=== PATIENT | male | born 1955 | race American Indian/Alaskan Native ===

== ENCOUNTER 2016-09-20 11:44 | Emergency (ER) | payer OTHER ==
[2016-09-20 11:54] VITALS: BP 151/93
--- NOTE | 2016-09-20 11:55 | Emergency Department Report ---
Chief Complaint: Urogenital-Male Stated Complaint: FREQ. URINATION/BACK PAIN/FOREHEAD CYST/ Time Seen by Provider: 09/20/16 11:52 - HPI History of Present Illness: PT c/o frequent urination - ROS Review of Systems: + chronic back pain + forehead cyst - polydipsia - Exam Physical Exam: pt is alert and appropriate, ambulatory with walker MSE screening note: Focused history and physical exam performed. Due to findings the following was ordered: labs ED Disposition for MSE Condition: Stable
[2016-09-20 12:54] LABS: Basophils % (Auto) 0.5 % (0.0-1.8); Eosinophils % (Auto) 1.6 % (0.0-4.3); Hematocrit 39.9 % (35.5-45.6); Hemoglobin 13.6 gm/dl (11.8-15.2); Mean Corpuscular HGB Conc 34 % (32-34); Mean Corpuscular Hemoglobin 34 pg (28-32); Mean Corpuscular Volume 101 fl (84-94); Platelet Count 186 K/mm3 (140-440); Red Blood Count 3.95 M/mm3 (3.65-5.03); Red Cell Distribution Width 11.9 % (13.2-15.2); White Blood Count 5.1 K/mm3 (4.5-11.0)
[2016-09-20 13:02] LABS: Anion Gap 19 mmol/L; BUN/Creatinine Ratio 28.57; Blood Urea Nitrogen 20 mg/dL (9-20); Calcium 9.7 mg/dL (8.4-10.2); Carbon Dioxide 26 mmol/L (22-30); Chloride 98.6 mmol/L (98-107); Glucose 93 mg/dL (75-100); Sodium 140 mmol/L (137-145)
[2016-09-20 14:42] LABS: Bilirubin,Urine NEG (Negative); Blood,Urine SM (Negative); Ketones,Urine NEG (Negative); Leukocyte Esterase,Urine NEG (Negative); Mucus,Urine FEW /HPF; Nitrite,Urine NEG (Negative); Protein,Urine <15 mg/dL mg/dL (Negative)
--- NOTE | 2016-09-20 17:07 | Emergency Department Report ---
Entered by KRISTIN MCKEON, acting as scribe for MARIA DOLORES CARROLL PA. ED Back Pain/Injury HPI - General Chief Complaint: Urogenital-Male Stated Complaint: FREQ. URINATION/BACK PAIN/FOREHEAD CYST/ Time Seen by Provider: 09/20/16 11:52 Source: patient Limitations: No Limitations - History of Present Illness Initial Comments: 60 y/o male with a PMHx of HTN, CVA, ID, diabetes mellitus, and bipolar disorder presents to the ED c/o low back pain that began more than 1 month ago. Rates pain an 8/10, which he describes as aching in quality. Aggravated with standing, movement, and walking, and alleviated with immobilization. Denies fever, chills, abdominal pain, nausea, vomiting, dysuria, urgency, frequency, incontinence, bilateral leg pain/swelling, chest pain, and SOB. Denies taking any medication for pain. Patient states he is ambulatory with a walker. DAVIAN BEJARANO Complaint: back pain (low) Onset/Timin -: month(s) Similar Symptoms Previously: Yes Place: home Radiation: other (low back) Severity: severe Severity scale (0 -10): 8 Quality: aching Consistency: constant Improves With: immobilization, sitting upright Worsens With: movement, walking, other (standing) Context: unknown Associated Symptoms: denies other symptoms. denies: confusion, weakness, chest pain, numbness, difficulty walking, cough, difficulty urinating, diaphoresis, incontinence, fever/chills, constipation, headaches, abdominal pain, loss of appetite, malaise, nausea/vomiting, rash, seizure, shortness of breath, syncope - Related Data Home Medications Medication Instructions Recorded Confirmed Last Taken Aspirin [Aspirin BABY CHEW TAB] 81 mg PO QDAY 07/27/15 07/27/15 Unknown Lisinopril/Hydrochlorothiazide 1 tab PO QDAY 07/27/15 07/27/15 Unknown [Zestoretic 10-12.5 mg] OLANzapine [ZyPREXA] 2 tab PO DAILY 07/27/15 07/27/15 Unknown Previous Rx's Medication Instructions Recorded Last Taken Type Furosemide [Lasix] 20 mg PO QDAY #7 tablet 07/27/15 Unknown Rx Acetaminophen [Acetaminophen TAB] 650 mg PO DAILY PRN #30 tablet 09/20/16 Unknown Rx Cyclobenzaprine [Flexeril] 10 mg PO QHS PRN #10 tablet 09/20/16 Unknown Rx Allergies Allergy/AdvReac Type Severity Reaction Status Date / Time No Known Allergies Allergy Verified 07/27/15 22:00 ED Review of Systems Comment: All other systems reviewed and negative Constitutional: denies: chills, fever Eyes: denies: eye pain, eye discharge, vision change ENT: denies: ear pain, throat pain Respiratory: denies: cough, orthopnea, shortness of breath, SOB with exertion, SOB at rest, stridor, wheezing Cardiovascular: denies: chest pain, palpitations, dyspnea on exertion, orthopnea , edema, syncope, paroxysmal nocturnal dyspnea Endocrine: no symptoms reported Gastrointestinal: denies: abdominal pain, nausea, vomiting, diarrhea Musculoskeletal: back pain (low back). denies: joint swelling, arthralgia Skin: denies: rash, lesions Neurological: denies: headache, weakness, numbness, paresthesias Hematological/Lymphatic: denies: easy bleeding, easy bruising ED Past Medical Hx - Past Medical History Previous Medical History?: Yes Hx Hypertension: Yes Hx Heart Attack/AMI: Yes Hx Congestive Heart Failure: Yes Hx Diabetes: Yes Hx Psychiatric Treatment: (bipolar) Additional medical history: cardiao vascular dis - Surgical History Past Surgical History?: No - Family History Family history: no significant - Social History Smoking Status: Current Every Day Smoker Substance Use Type: None - Medications Home Medications: Home Medications Medication Instructions Recorded Confirmed Last Taken Type Aspirin [Aspirin BABY CHEW TAB] 81 mg PO QDAY 07/27/15 07/27/15 Unknown History Furosemide [Lasix] 20 mg PO QDAY #7 tablet 07/27/15 Unknown Rx Lisinopril/Hydrochlorothiazide 1 tab PO QDAY 07/27/15 07/27/15 Unknown History [Zestoretic 10-12.5 mg] OLANzapine [ZyPREXA] 2 tab PO DAILY 07/27/15 07/27/15 Unknown History Acetaminophen [Acetaminophen TAB] 650 mg PO DAILY PRN #30 tablet 09/20/16 Unknown Rx Cyclobenzaprine [Flexeril] 10 mg PO QHS PRN #10 tablet 09/20/16 Unknown Rx ED Physical Exam - General Limitations: No Limitations General appearance: alert, in no apparent distress - Head Head exam: Present: atraumatic, normocephalic - Eye Eye exam: Present: normal appearance, PERRL, EOMI Pupils: Present: normal accommodation - ENT ENT exam: Present: normal exam, mucous membranes moist, normal external ear exam - Neck Neck exam: Present: normal inspection, full ROM. Absent: tenderness, meningismus, lymphadenopathy, thyromegaly - Respiratory Respiratory exam: Present: normal lung sounds bilaterally. Absent: respiratory distress, wheezes, rales, rhonchi, stridor, chest wall tenderness, accessory muscle use, decreased breath sounds, prolonged expiratory - Cardiovascular Cardiovascular Exam: Present: regular rate, normal rhythm, normal heart sounds. Absent: systolic murmur, diastolic murmur, rubs, gallop - GI/Abdominal GI/Abdominal exam: Present: soft, normal bowel sounds. Absent: distended, tenderness, guarding, rebound, rigid - Extremities Exam Extremities exam: Present: normal inspection, full ROM, normal capillary refill. Absent: tenderness, pedal edema, joint swelling, calf tenderness - Back Exam Back exam: Present: normal inspection, full ROM. Absent: tenderness, CVA tenderness (R), CVA tenderness (L), muscle spasm, paraspinal tenderness, vertebral tenderness - Neurological Exam Neurological exam: Present: alert, oriented X3, normal gait (ambulatory with walker) - Psychiatric Psychiatric exam: Present: normal affect, normal mood - Skin Skin exam: Present: warm, dry, intact, other (3-4 mass present on right thoracic muscle). Absent: rash ED Course Vital Signs 09/20/16 11:50 Temperature 97.3 F L Pulse Rate 105 H Respiratory 16 Rate Blood Pressure 151/93 O2 Sat by Pulse 98 Oximetry ED Medical Decision Making - Lab Data Result diagrams: 09/20/16 12:30 09/20/16 12:30 - Medical Decision Making 60 [id number] presents with low back myalgia ED course: Patient received an UA. Urinalysis is negative. CBC, CMP within normal limits Scars findings with patient Vital signs stable patient is in no acute or respiratory distress. Discussed findings with patient about diagnoses. Discussed treatment in ED with patient Discussed with patient to follow up with PCP as referred, and to return to the ED if symptoms return or worsen. Patient states understanding and will follow instructions. Pt verbally states understanding and will comply to follow up. ED Disposition Clinical Impression: Lumbar radicular pain Disposition: DC-01 TO HOME OR SELFCARE Is pt being admited?: No Does the pt Need Aspirin: No Condition: Stable Instructions: Trigger Point Pain (ED), Musculoskeletal Pain (ED), Heat Pack Application (ED) Prescriptions: Cyclobenzaprine [Flexeril] 10 mg PO QHS PRN #10 tablet PRN Reason: Muscle Spasm Acetaminophen [Acetaminophen TAB] 650 mg PO DAILY PRN #30 tablet PRN Reason: Pain Referrals: PRIMARY CAREMD [Primary Care Provider] - 3-5 Days YANETH GOMEZ MD [Referring] - 3-5 Days [facility] [Outside] - 3-5 Days [facility] [Outside] - 3-5 Days Forms: Work/School Release Form(ED) This documentation as recorded by the MIKE ocasio JASMINE,accurately reflects the service I personally performed and the decisions made by CARLY escobedo OYINLOLA A PA.
== END 2016-09-20 15:46 | disposition home or self-care (01) ==
LOC: ED 11:44
DX: M54.16 Radiculopathy, lumbar region (principal); I10 Essential (primary) hypertension; I25.2 Old myocardial infarction; I50.9 Heart failure, unspecified; F31.9 Bipolar disorder, unspecified; E11.9 Type 2 diabetes mellitus without complications; F17.200 Nicotine dependence, unspecified, uncomplicated; Z79.82 Long term (current) use of aspirin
CPT/HCPCS: 36415; 80048; 81001; 85025; 99283